=== PATIENT | female | born 1985 | race Caucasian/White ===

== ENCOUNTER 2018-01-01 15:29 | Emergency (ER) | payer MEDICAID ==
--- NOTE | 2018-01-01 17:03 | EDM.PDOC ---
ED HPI GENERAL MEDICAL PROBLEM - General Chief Complaint: Respiratory Problem Stated Complaint: BODY ACHES/COUGH Time Seen by Provider: 01/01/18 15:45 Source of Information: Reports: Patient History Limitations: Reports: No Limitations - History of Present Illness INITIAL COMMENTS - FREE TEXT/NARRATIVE: The patient presents with body aches, cough, headache, and sore throat. This started yesterday. She is not sure if she has a fever. She has no appetite. She has no abdominal pain nausea or vomiting. Onset: Gradual Duration: Day(s): (Yesterday) Severity: Mild Improves with: Reports: None Worsens with: Reports: None Associated Symptoms: Reports: Cough. Denies: Chest Pain, Fever/Chills, Nausea/ Vomiting, Shortness of Breath Head Pain Score (Numeric/FACES): 8 Back Pain Score (Numeric/FACES): 8 - Related Data Allergies Allergy/AdvReac Type Severity Reaction Status Date / Time seafood Allergy Swelling Uncoded 01/01/18 15:54 Home Meds: Home Meds Oseltamivir [Tamiflu] 75 mg PO BID #10 cap 01/01/18 [Rx] Past Medical History - Past Health History Medical/Surgical History: Denies Medical/Surgical History Psychiatric History: Reports: Depression Social & Family History - Tobacco Use Smoking Status *Q: Never Smoker - Recreational Drug Use Recreational Drug Use: No ED ROS GENERAL - Review of Systems Review Of Systems: See Below Constitutional: Reports: Malaise, Weakness, Fatigue HEENT: Reports: No Symptoms Respiratory: Reports: Cough Cardiovascular: Reports: No Symptoms Endocrine: Reports: No Symptoms GI/Abdominal: Reports: No Symptoms : Reports: No Symptoms Musculoskeletal: Reports: Muscle Pain ED EXAM, GENERAL - Physical Exam Exam: See Below Exam Limited By: No Limitations General Appearance: Alert, No Apparent Distress Ears: Normal External Exam, Normal Canal, Normal TMs Nose: Normal Inspection Throat/Mouth: Normal Inspection Head: Atraumatic, Normocephalic Neck: Normal Inspection Respiratory/Chest: No Respiratory Distress, Lungs Clear, Normal Breath Sounds Cardiovascular: Regular Rate, Rhythm, No Edema, No Murmur GI/Abdominal: Soft, Non-Tender, No Organomegaly, No Mass Back Exam: Normal Inspection Extremities: Normal Inspection Neurological: Alert, Oriented, No Motor/Sensory Deficits Course - Vital Signs Last Recorded V/S: Last Vital Signs Temp 99.2 F 01/01/18 15:54 Pulse 101 H 01/01/18 15:54 Resp 17 01/01/18 15:54 BP 109/75 01/01/18 15:54 Pulse Ox 99 01/01/18 15:54 - Re-Assessments/Exams Free Text/Narrative Re-Assessment/Exam: 01/01/18 17:21 Her influenza screen was negative but her brother is here and he is influenza A positive. She has a false negative. I will get her on tamiflu. Departure - Departure Time of Disposition: 17:25 Disposition: Home, Self-Care 01 Condition: Good Clinical Impression: Influenza A - Discharge Information Prescriptions: Oseltamivir [Tamiflu] 75 mg PO BID #10 cap Referrals: Debby Sánchez MD [Primary Care Provider] - 1 Week Forms: ED Department Discharge, ED Return to Work/School Form Additional Instructions: Drink plenty of fluids. Take motrin or aleve as needed for pain or fever. Take tamiflu 2 times per day for 5 days.
== END 2018-01-01 17:50 | disposition home or self-care (01) ==
LOC: JD.ED 15:29
DX: J10.1 Influenza due to other identified influenza virus with other respiratory manifestations (principal); Z91.013 Allergy to seafood
CPT/HCPCS: 87804; 99284

== ENCOUNTER 2021-12-15 17:19 | Day surgery (SDC) | payer MEDICAID ==
[2021-12-15] MEDS ORDERED: LORazepam 2 MG/ML SDV IM ONE ×2 (18:04→18:58)
[2021-12-15] MEDS ORDERED: LORazepam 2 MG/ML SDV IVPUSH ONE (18:59)
[2021-12-15] MEDS ORDERED: Acetaminophen 325 MG Tab PO ONE (18:59)
[2021-12-15] MEDS ORDERED: Sodium Chloride 0.9% 10 ML Syringe FLUSH PRN (18:59)
[2021-12-15] MEDS ORDERED: Magnesium Citrate Solution 296 ML Bottle PO ONE (22:33)
[2021-12-15] MEDS ORDERED: Lactated Ringers 1,000 ML IV ONE (23:13)
[2021-12-15] MEDS ORDERED: LORazepam 2 MG/ML SDV IVPUSH PRN (23:13)
[2021-12-16] MEDS ORDERED: Lactated Ringers 1,000 ML IV ONE (07:32)
[2021-12-16] MEDS ORDERED: cefOXitin 2 GM in Premix Bag 1 BAG IV ONE (07:33)
[2021-12-16] MEDS ORDERED: Midazolam 1 MG/ML 2 ML SDV ONE (09:59)
[2021-12-16] MEDS ORDERED: fentaNYL 250 MCG/5 ML SDV ONE (09:59)
[2021-12-16] MEDS ORDERED: Propofol 200 MG/20 ML SDV ONE (10:00)
[2021-12-16] MEDS ORDERED: Lidocaine 1% 6 ML ONE (10:00)
[2021-12-16] MEDS ORDERED: Succinylcholine/Sod PF 100 MG/5 ML SYRINGE IV ONE (10:06)
[2021-12-16] MEDS ORDERED: Rocuronium 50 MG/5 ML Vial ONE (10:13)
[2021-12-16] MEDS ORDERED: Bupivacaine 0.5% 30 ML SDV ONE (10:52)
[2021-12-16] MEDS ORDERED: Dexamethasone 4 MG/ML 5 ML MDV ONE (11:33)
[2021-12-16] MEDS ORDERED: Ondansetron 4 MG/2 ML SDV ONE (11:33)
[2021-12-16] MEDS ORDERED: Ketorolac 30 MG/ML SDV ONE (11:48)
[2021-12-16] MEDS ORDERED: Lactated Ringers 1,000 ML ONE (11:55)
[2021-12-16] MEDS ORDERED: HYDROmorphone 0.5 MG/0.5 ML Syringe IVPUSH PRN (11:59)
[2021-12-16] MEDS ORDERED: fentaNYL 100 MCG/2 ML SDV IVPUSH PRN (11:59)
== END 2021-12-16 15:15 | disposition home or self-care (01) ==
LOC: JD.ED 17:19 → SUPCPDRO 17:19 → JD.SDS 12-16 08:10
PROVIDERS: ATTEND Surgery
DX: K35.30 Acute appendicitis with localized peritonitis, without perforation or gangrene (principal); G89.29 Other chronic pain; F41.9 Anxiety disorder, unspecified; F32.A Depression, unspecified
CPT/HCPCS: 36415; 44970; 74176; 80053; 85025; 86140; A9270; J0330; J1100; J1885; J2060; J2250; J2405; J2704; J2710; J3010; J3490; J7120; 00840; 99285

== ENCOUNTER 2022-02-12 18:15 | Emergency (ER) | payer MEDICAID ==
[2022-02-12] MEDS ORDERED: Metoclopramide 10 MG/2 ML SDV IM ONE (18:32)
[2022-02-12] MEDS ORDERED: Ketorolac 30 MG/ML SDV IM ONE (18:32)
[2022-02-12] MEDS ORDERED: diphenhydrAMINE 50 MG/ML SDV IM ONE (18:32)
[2022-02-12] MEDS ORDERED: Orphenadrine 100 MG Tab.ER PO ONE (19:13)
== END 2022-02-12 19:35 | disposition home or self-care (01) ==
LOC: JD.ED 18:15
DX: S06.0X0A Concussion without loss of consciousness, initial encounter (principal); G44.89 Other headache syndrome; Z79.899 Other long term (current) drug therapy; Z91.013 Allergy to seafood; W18.09XA Striking against other object with subsequent fall, initial encounter
CPT/HCPCS: 96372; 99283; A9270; J1200; J1885; J2765; 99284

== ENCOUNTER 2023-04-03 09:55 | Emergency (ER) | payer BC, MEDICAID ==
[2023-04-03] MEDS ORDERED: Ondansetron 4 MG/2 ML SDV IVPUSH ONE (10:20)
[2023-04-03] MEDS ORDERED: fentaNYL 100 MCG/2 ML SDV IVPUSH ONE (10:20)
[2023-04-03] MEDS: Sodium Chloride 0.9% 10 ML Syringe FLUSH PRN ×2 (10:27→10:34)
[2023-04-03] MEDS ORDERED: Iopamidol 755 Mg/ML 100 ML Bottle IVPUSH ONE (10:29)
[2023-04-03] MEDS ORDERED: Sodium Chloride 0.9% 100 ML IV SCH (10:30)
[2023-04-03 10:43] LABS: BASOPHILS ABSOLUTE AUTO 0.03 K/mm3 (0.01-0.08); BASOPHILS PERCENT AUTO 0.5 % (0.1-1.2); EOSINOPHILS ABSOLUTE AUTO 0.09 K/mm3 (0.04-0.36); EOSINOPHILS PERCENT AUTO 1.4 (0.7-5.8); LYMPHOCYTES ABSOLUTE AUTO 1.78 K/mm3 (1.18-3.74); LYMPHOCYTES PERCENT AUTO 27.8 % (19.3-51.7); MEAN CORPUSCULAR HEMOGLOBIN 30.1 pg (25.6-32.2); MEAN CORPUSCULAR HGB CONC 34.1 g/dl (32.2-35.5); MEAN CORPUSCULAR VOLUME 88.2 fl (79.4-94.8); MEAN PLATELET VOLUME 10.2 fl (9.4-12.3); MONOCYTES ABSOLUTE AUTO 0.55 K/mm3 (0.24-0.36); MONOCYTES PERCENT AUTO 8.6 % (4.7-12.5); NEUTROPHILS ABSOLUTE AUTO 3.96 K/mm3 (1.56-6.13); NEUTROPHILS PERCENT AUTO 61.7 % (34.0-71.1); PLATELET COUNT,PLT 306 K/mm3 (182-369); RED BLOOD CELL COUNT 4.99 M/mm3 (3.98-5.22); WHITE BLOOD CELL COUNT,WBC 6.41 K/mm3 (3.98-10.04)
[2023-04-03 10:53] LABS: ALANINE AMINOTRANSFERASE,ALT 35 U/L (14-59); ALBUMIN 3.9 g/dl (3.4-5.0); ALKALINE PHOSPHATASE 115 U/L (46-116); ANION GAP 12.7 (5-15); ASPARTATE AMNIOTRANSFERASE,AST 23 U/L (15-37); BILIRUBIN TOTAL 0.5 mg/dL (0.2-1.0); BLOOD UREA NITROGEN,BUN 14 mg/dL (7-18); BUN/CREATININE RATIO 17.5 (14-18); CALCIUM 9.5 mg/dL (8.5-10.1); CARBON DIOXIDE,CO2 28 mEq/L (21-32); CHLORIDE,CL 103 mEq/L (98-107); CREATININE 0.8 mg/dL (0.55-1.02); EST CRCL DRUG DOSING (CG) 89.26 mL/min; ESTIMATED GFR 97 mL/min (>60); GLUCOSE RANDOM 101 mg/dL (70-99); LIPASE 90 U/L (73-393); POTASSIUM,K 3.7 mEq/L (3.5-5.1); PROTEIN TOTAL,TP 7.7 g/dl (6.4-8.2); SODIUM,NA 140 mEq/L (136-145); TROPONIN I HIGH SENSITIVITY 4 pg/mL (<=51)
[2023-04-03 10:57] LABS: C-REACTIVE PROTEIN < 0.2 mg/dL (<1.0)
== END 2023-04-03 12:34 | disposition home or self-care (01) ==
LOC: JD.ED 09:55
DX: R07.89 Other chest pain (principal); Z91.013 Allergy to seafood
CPT/HCPCS: 36415; 71275; 80053; 83690; 83880; 84484; 85025; 86140; 93005; 96374; 96375; 99285; J2405; J3010; J3490; Q9967; 93010; 99284

== ENCOUNTER 2023-10-07 09:45 | Emergency (ER) | payer OTHER, MEDICAID | END 2023-10-07 12:00 | disposition home or self-care (01) | LOC: JD.ED 09:45 | DX: S39.012A Strain of muscle, fascia and tendon of lower back, initial encounter (principal); E03.9 Hypothyroidism, unspecified; Z91.013 Allergy to seafood; Z90.710 Acquired absence of both cervix and uterus; Z79.899 Other long term (current) drug therapy; W22.8XXA Striking against or struck by other objects, initial encounter | CPT/HCPCS: 72131; 72131-26; 99283; J7509 ==

== ENCOUNTER 2024-02-02 09:21 | Emergency (ER) | payer SELFPAY ==
[2024-02-02] MEDS: Ketorolac 15 MG/ML SDV IVPUSH ONE (09:51)
[2024-02-02 09:55] LABS: BASOPHILS PERCENT AUTO 0.7 % (0.0-1.0); EOSINOPHILS ABSOLUTE AUTO 0.2 K/mm3 (0.0-0.4); EOSINOPHILS PERCENT AUTO 2.4 % (0.0-6.0); HEMATOCRIT 47.1 % (37.0-47.0); HEMOGLOBIN 15.7 gm/dl (12.0-16.0); IMMATURE GRAN ABSOLUTE AUTO 0.03 K/mm3 (0.00-0.05); IMMATURE GRAN PERCENT AUTO 0.5 % (0.0-0.4); LYMPHOCYTES ABSOLUTE AUTO 1.7 K/mm3 (1.0-4.8); LYMPHOCYTES PERCENT AUTO 27.1 % (24.0-44.0); MEAN CORPUSCULAR HEMOGLOBIN 30.3 pg (28.0-32.0); MEAN CORPUSCULAR HGB CONC 33.3 g/dl (32.0-36.0); MEAN CORPUSCULAR VOLUME 90.9 fl (83.0-99.0); MEAN PLATELET VOLUME 10.1 fl (9.4-12.3); MONOCYTES ABSOLUTE AUTO 0.5 K/mm3 (0.0-0.8); MONOCYTES PERCENT AUTO 8.6 % (0.0-8.0); NEUTROPHILS ABSOLUTE AUTO 3.7 K/mm3 (1.8-7.7); NEUTROPHILS PERCENT AUTO 60.7 % (41.0-71.0); PLATELET COUNT,PLT 275 K/mm3 (150-400); RED BLOOD CELL COUNT 5.18 M/mm3 (4.10-5.30); WHITE BLOOD CELL COUNT,WBC 6.13 K/mm3 (3.9-11.3)
[2024-02-02 10:13] LABS: ALBUMIN 3.9 g/dl (3.4-5.0); BILIRUBIN TOTAL 0.5 mg/dL (0.2-1.0); BUN/CREATININE RATIO 17.5 (14-18); CALCIUM 9.4 mg/dL (8.5-10.1); CREATININE 0.8 mg/dL (0.55-1.02); EST CRCL DRUG DOSING (CG) 88.38 mL/min; PROTEIN TOTAL,TP 7.9 g/dl (6.4-8.2)
[2024-02-02 10:36] LABS: ANION GAP 9.6 (5-15); POTASSIUM,K 3.6 mEq/L (3.5-5.1)
[2024-02-02] MEDS: Alum Hydrox/Mag Hydrox/Simeth 30 ML, Lidocaine 2% 15 ML PO ONE (13:36)
== END 2024-02-02 13:55 | disposition home or self-care (01) ==
LOC: JD.ED 09:21
DX: R07.9 Chest pain, unspecified (principal); E03.9 Hypothyroidism, unspecified; Z91.013 Allergy to seafood; Z79.899 Other long term (current) drug therapy; Z90.710 Acquired absence of both cervix and uterus
CPT/HCPCS: 36415; 71045; 80053; 84484; 85025; 85379; 93005; 96374; 99285; A9270; J1885; 93010; 99284

== ENCOUNTER 2024-11-02 08:32 | Emergency (ER) | payer MEDICAID, OTHER ==
[2024-11-02] MEDS: Iopamidol 612 MG/ML 100 ML Bottle IVPUSH ONE (11:59)
[2024-11-02] MEDS: Sodium Chloride 0.9% 10 ML Syringe FLUSH PRN (11:59)
[2024-11-02 12:05] LABS: BASOPHILS PERCENT AUTO 0.4 % (0.0-1.0); EOSINOPHILS ABSOLUTE AUTO 0.1 K/mm3 (0.0-0.4); EOSINOPHILS PERCENT AUTO 1.9 % (0.0-6.0); HEMATOCRIT 43.1 % (37.0-47.0); HEMOGLOBIN 15.1 gm/dl (12.0-16.0); IMMATURE GRAN ABSOLUTE AUTO 0.01 K/mm3 (0.00-0.05); IMMATURE GRAN PERCENT AUTO 0.1 % (0.0-0.4); LYMPHOCYTES ABSOLUTE AUTO 1.7 K/mm3 (1.0-4.8); LYMPHOCYTES PERCENT AUTO 25.5 % (24.0-44.0); MEAN CORPUSCULAR HEMOGLOBIN 29.2 pg (28.0-32.0); MEAN CORPUSCULAR VOLUME 83.2 fl (83.0-99.0); MEAN PLATELET VOLUME 9.7 fl (9.4-12.3); MONOCYTES ABSOLUTE AUTO 0.5 K/mm3 (0.0-0.8); NEUTROPHILS ABSOLUTE AUTO 4.3 K/mm3 (1.8-7.7); NEUTROPHILS PERCENT AUTO 65.1 % (41.0-71.0); PLATELET COUNT,PLT 305 K/mm3 (150-400); RED BLOOD CELL COUNT 5.18 M/mm3 (4.10-5.30); WHITE BLOOD CELL COUNT,WBC 6.67 K/mm3 (3.9-11.3)
[2024-11-02 12:23] LABS: ALBUMIN 3.7 g/dl (3.4-5.0); ANION GAP 14.9 (5-15); BILIRUBIN TOTAL 0.5 mg/dL (0.2-1.0); BUN/CREATININE RATIO 16.3 (14-18); CALCIUM 9.1 mg/dL (8.5-10.1); CREATININE 0.8 mg/dL (0.55-1.02); EST CRCL DRUG DOSING (CG) 90.9 mL/min; POTASSIUM,K 3.9 mEq/L (3.5-5.1); PROTEIN TOTAL,TP 7.3 g/dl (6.4-8.2)
[2024-11-02] MEDS: Sodium Chloride 0.9% 10 ML Syringe FLUSH ONE (13:49)
== END 2024-11-02 13:17 | disposition home or self-care (01) ==
LOC: JD.ED 08:32
DX: R09.A2 Foreign body sensation, throat (principal); Z85.850 Personal history of malignant neoplasm of thyroid; E03.9 Hypothyroidism, unspecified; Z91.013 Allergy to seafood; Z79.890 Hormone replacement therapy; Z79.899 Other long term (current) drug therapy; Z90.49 Acquired absence of other specified parts of digestive tract; Z90.710 Acquired absence of both cervix and uterus
CPT/HCPCS: 36415; 70491; 76536; 80053; 85025; 99284; Q9967